=== PATIENT | female | born 1975 | race Caucasian/White ===

== ENCOUNTER 2018-06-13 13:16 | Emergency (ER) | payer SELFPAY ==
[~2018-06-13] VITALS: Ht 165.1 cm; Wt 54.4 kg
[~2018-06-13 13:16] MED LIST: AZIT-21 PO; PRCD5U PO
--- OUTSIDE RECORDS SUMMARY | 2018-06-13 13:23 | XMS REPORT | Continuity of Care Document ---
Author Author [facility] Address Unknown Phone Unavailable Allergies There is no data. Medications There is no data. Problems Date Dx Coded Attending Type Code Diagnosis Diagnosed By 08/10/2011 AMMY BLAKE MD 217 BENIGN NEOPLASM OF BREAST 08/10/2011 ROBBIE SADLER APRN 217 BENIGN NEOPLASM OF BREAST 01/01/2014 AMMY BLAKE MD 034.0 PHARYNGITIS STREPTOCOCCUS, GROUP A: BETA HEMOLYTIC 01/01/2014 ROBBIE SADLER APRN 034.0 PHARYNGITIS STREPTOCOCCUS, GROUP A: BETA HEMOLYTIC 09/23/2014 ROBBIE SADLER APRN 724.2 LUMBAGO/ LOW BACK PAIN Procedures Code [place] [address] STREP A (IN-HOUSE) 01/01/2014 [id number] XRAY LUMBAR SPINE 2 OR 3 VIEWS 09/23/2014 [id number] [employer]IT[employer] 09/29/2014 Results There is no data. Encounters ACCT No. Visit Date/Time Discharge Status Pt. Type Provider Facility Loc./Unit Complaint [id number] 09/23/2014 09:06:00 09/23/2014 23:59:59 CLS Outpatient ROBBIE SADLER APRN [id number] 01/01/2014 08:40:00 01/01/2014 23:59:59 CLS Outpatient AMMY BLAKE MD [id number] 05/29/2018 14:00:00 05/29/2018 23:59:59 CLS Outpatient KUN VENEGAS APRN [facility]
--- NOTE | 2018-06-13 13:41 | ED Head Injury ---
General Stated Complaint: HEAD INJ Source: patient (and friend) Exam Limitations: no limitations History of Present Illness Date Seen by Provider: Jun 13, 2018 Time Seen by Provider: 13:20 Initial Comments Patient is a 42-year-old female who presents to the emergency room accompanied by a friend with complaints of right-sided head pain after hitting her head on a bookshelf yesterday. She reports that yesterday she was cleaning and stood up hitting her head on one of the shelves bookshelf. She reports pain ever since. She denies taking any medications for pain relief. Denies LOC, neck pain, visual changes. Occurred: yesterday Severity: mild Location: parietal (right) Loss of Consciousness: no loss of consciousness Associated Systoms: No Headaches, No Nausea/Vomiting, No Seizure, No Syncope Allergies and Home Medications Allergies Coded Allergies: No Known Drug Allergies (Unverified , 12/15/11) Patient Home Medication List Home Medication List Reviewed: Yes Review of Systems Constitutional: see HPI; No dizziness Psychiatric/Neurological: See HPI, Headache (right-sided head pain) All Other Systems Reviewed Negative Unless Noted: Yes Past Dmqquzg-[id number]-Ddmrhq Hx Past Med/Social Hx: Reviewed Nursing Past Med/Soc Hx Patient Social History Recent Foreign Travel: No Contact w/Someone Who Travel: No Immunizations Up To Date Date of Influenza Vaccine: Aug 07, 2011 Family Medical History Reviewed Nursing Family Hx Physical Exam Vital Signs Vital Signs - First Documented 06/13/18 13:21 Temp 98.2 Pulse 8 Resp 18 B/P (MAP) 137/91 (106) Pulse Ox 98 O2 Delivery Room Air Capillary Refill : Height, Weight, BMI Height: '" Weight: lbs. oz. kg; BMI Method:Stated General Appearance: WD/WN, no apparent distress HEENT: PERRL/EOMI, normal ENT inspection, TMs normal Cardiovascular: regular rate, rhythm, no edema, no gallop, no JVD, no murmur Respiratory: chest non-tender, lungs clear, normal breath sounds, no respiratory distress, no accessory muscle use Psychiatric: alert, oriented x 3 Crainal Nerves: normal hearing, normal speech, PERRL Progress/Results/Core Measures Results/Orders My Orders Medications Given in ED Vital Signs/I&O Progress Progress Note : Progress Note I have seen and evaluated the patient. She has had minimal relief of pain with Toradol. 1 time dose of hydrocodone will be given. She agrees with plans of discharge, close follow up with PCP, and return precautions. Departure Impression Primary Impression: Head contusion Disposition: 01 HOME, SELF-CARE Condition: Stable/Unchanged Departure-Patient Inst. Decision time for Depature: 14:27 Referrals: NO,LOCAL PHYSICIAN (PCP/Family) Primary Care Physician Patient Instructions: Minor Head Injury (DC) Add. Discharge Instructions: You may use ibuprofen and Tylenol as directed by the bottle for pain. Follow up with [facility] within 1 week for recheck. Return back to the emergency room for worsening symptoms or any other concerns as needed. APRIL MARTIN Jun 13, 2018 13:41
[2018-06-13] MEDS ORDERED: KETOROLAC 60 MG/2 ML VIAL IM ONE (13:45)
--- NOTE | 2018-06-13 14:19 | Diagnostic Imaging Report ---
PROCEDURE: CT head without contrast. TECHNIQUE: Multiple contiguous axial images were obtained through the brain without the use of intravenous contrast. INDICATION: Head injury with injury to the right side of the head. COMPARISON: No prior studies are available for comparison. FINDINGS: The ventricles and sulci are within normal limits. No sulcal effacement, midline shift or hemorrhage is detected. The cisterns are patent. The visualized paranasal sinuses are clear. IMPRESSION: No acute intracranial process is detected. Dictated by: Dictated on workstation # [id number]
[2018-06-13] MEDS ORDERED: HYDROcodone/APAP 5 MG/325 MG (LORTAB) TAB PO ONE (14:30)
[2018-06-13 15:02] VITALS: BP 113/63
== END 2018-06-13 15:02 | disposition home or self-care (01) ==
LOC: EDUNIT# 13:16 → ER 13:19
DX: S00.83XA Contusion of other part of head, initial encounter (principal); W22.03XA Walked into furniture, initial encounter
CPT/HCPCS: 70450; 96372